=== PATIENT | male | born 1990 | race Caucasian/White ===

== ENCOUNTER 2018-08-27 18:39 | Emergency (ER) | payer OTHER ==
[2018-08-27 18:48] VITALS: BP 119/85
--- NOTE | 2018-08-27 19:10 | UC ---
Abdominal Pain Male HPI - HPI Summary HPI Summary: 28-year-old male who started experiencing mid abdominal discomfort during the night approximately 3 AM. Since then the discomfort has moved to the right lower quadrant. He's had some nausea today and low-grade temp. Last time he ate was approximatly 2:00pm today however that was not a big meal. - History of Current Complaint Chief Complaint: UCAbdominalPain Stated Complaint: ABDOMINAL PAIN Time Seen by Provider: 08/27/18 18:54 Hx Obtained From: Patient Onset/Duration: Gradual Onset Timing: Constant Severity Initially: Mild Severity Currently: Moderate Pain Intensity: 7 Location: Discrete At: RLQ Radiates: No Character: Aching, Dull Aggravating Factor(s): Movement Alleviating Factor(s): Nothing Associated Signs And Symptoms: Positive: Fever - Low-grade fever, Decreased Appetite - Decreased appetite today., Nausea - Mild nausea today - Allergies/Home Medications Allergies/Adverse Reactions: Allergies Allergy/AdvReac Type Severity Reaction Status Date / Time No Known Allergies Allergy Verified 08/27/18 18:49 Home Medications: Home Medications Loratadine [Claritin 10 MG CAP] 10 mg PO DAILY 08/27/18 [History Confirmed 08/27] PMH/Surg Hx/FS Hx/Imm Hx Previously Healthy: Yes GI/ History: Other - Ulcerative colitis - Surgical History Surgical History: Yes Surgery Procedure, Year, and Place: multiple foot surgeries 2004- - Family History Known Family History: Positive: Hypertension - Social History Alcohol Use: Weekly Substance Use Type: Marijuana Substance Use Comment - Amount & Last Used: weekly Smoking Status (MU): Never Smoked Tobacco Review of Systems All Other Systems Reviewed And Are Negative: Yes Constitutional: Positive: Fever Gastrointestinal: Positive: Abdominal Pain, Nausea Is Patient Immunocompromised?: No Physical Exam Triage Information Reviewed: Yes Appearance: No Pain Distress, Well-Nourished, Ill-Appearing - Mildly ill- appearing and moves slowly when positioning self on the exam table Vital Signs: Initial Vital Signs Temp 99.8 F 08/27/18 18:43 Pulse 96 08/27/18 18:43 Resp 16 08/27/18 18:43 BP 119/85 08/27/18 18:43 Pulse Ox 99 08/27/18 18:43 Vital Signs Reviewed: Yes Eyes: Positive: Conjunctiva Clear ENT: Positive: Hearing grossly normal, Pharynx normal, TMs normal, Uvula midline Neck: Positive: Supple, Nontender, No Lymphadenopathy Respiratory: Positive: Lungs clear, Normal breath sounds, No respiratory distress, No accessory muscle use Cardiovascular: Positive: RRR, No Murmur, Pulses Normal, Brisk Capillary Refill Abdomen Description: Positive: No Organomegaly, Soft, Guarding - Guarding right lower quadrant, McBurney's Point Tenderness - With rebound. Negative: Hepatomegaly, Splenomegaly Bowel Sounds: Positive: Present Musculoskeletal Exam: Normal Neurological Exam: Normal Psychological Exam: Normal Skin Exam: Normal Abd Pain Male Course/Dx - Course Course Of Treatment: This patient's physical exam is consistent with acute appendicitis. He was referred to the emergency room. He prefers to go by private car and he was advised to brisket puller and call 911 if he has any difficulties or worsening symptoms. The patient was advised not to eat or drink anything between here and the emergency room. He was in agreement with this instruction. He did voice to me he wanted to wait 24 hours before going to the emergency room however I strongly advised him that he needs to go to the emergency room from here to be evaluated. He then stated that he would do that. - Differential Dx/Clinical Impression Provider Diagnosis: Abdominal pain Discharge - Sign-Out/Discharge Documenting (check all that apply): Patient Departure All imaging exams completed and their final reports reviewed: No Studies - Discharge Plan Condition: Fair Disposition: HOME-RECOMMEND TO ED Referrals: Mark Orosco MD [Primary Care Provider] - Additional Instructions: After the evaluation by the nurse practitioner, it is recommended that you go to the emergency room for further evaluation of the abdominal pain where you should receive additional testing that can be completed in the emergency department. It is recommended that you go directly to the emergency department. This evaluation may include blood work or imaging. This testing will be directed and decided by the provider that evaluates you within the emergency department. If pain becomes worse, you feel lightheaded or you develop uncontrolled vomiting, or have any other concerns while you are driving to the emergency room, please brisket puller and call 911. Your physical exam is consistent with acute appendicitis. - Billing Disposition and Condition Condition: FAIR Disposition: Home-Recommend to ED
== END 2018-08-27 19:05 | disposition home health service (06) ==
LOC: UCEAST 18:39
DX: R10.31 Right lower quadrant pain (principal)
CPT/HCPCS: 99212; G0463

== ENCOUNTER 2018-08-27 19:31 | Observation (INO) | payer OTHER ==
--- NOTE | 2018-08-27 20:27 | ED ---
Abdominal Pain/Male - HPI Summary HPI Summary: This patient is a 28 year old M presenting to [facility] with a chief complaint of abdominal pain that began diffusely yesterday evening that gradually worsened today. He reports accidently hitting his abdomen earlier today that caused significant pain in the RLQ. Pain is unrelieved by antacids and Tylenol. Pain rated 7/10 in severity. Reports decrease appetite and generalized malaise prior to onset of pain. Patient denies changes in BM, urinary symptoms, and chest pain. PMHx of Ulcerative Colitis; states current symptoms are dissimilar to a flare up. - History of Current Complaint Chief Complaint: EDAbdPain Stated Complaint: ABD PAIN PER PT Time Seen by Provider: 08/27/18 20:15 Hx Obtained From: Patient Onset/Duration: Gradual Onset, Lasting Days Timing: Constant Severity Initially: Mild Severity Currently: Moderate Pain Intensity: 7 Pain Scale Used: Adult Non Verbal Location: Diffuse, Discrete At: RLQ Aggravating Factor(s): Other: - palpation Alleviating Factor(s): Nothing Associated Signs And Symptoms: Positive: Decreased Appetite, Other - general malaise. Negative: Chest Pain, Diarrhea - Allergies/Home Medications Allergies/Adverse Reactions: Allergies Allergy/AdvReac Type Severity Reaction Status Date / Time No Known Allergies Allergy Verified 08/27/18 19:43 PMH/Surg Hx/FS Hx/Imm Hx Endocrine/Hematology History: Denies: Hx Diabetes Cardiovascular History: Denies: Hx Hypertension GI History: Reports: Other GI Disorders - Recent hx ulcerative colitis History: Denies: Hx Renal Disease - Surgical History Surgery Procedure, Year, and Place: multiple foot surgeries 2004- Infectious Disease History: No Infectious Disease History: Denies: History Other Infectious Disease, Traveled Outside the [place] in Last 30 Days - Family History Known Family History: Positive: Hypertension - Social History Alcohol Use: Weekly Substance Use Type: Reports: Marijuana Substance Use Comment - Amount & Last Used: weekly Smoking Status (MU): Never Smoked Tobacco Review of Systems Positive: Other - generalize malaise Negative: Chest Pain Gastrointestinal: Other - decrease appetite Positive: Abdominal Pain Positive: no symptoms reported All Other Systems Reviewed And Are Negative: Yes Physical Exam - Summary Physical Exam Summary: Appearance: Well-appearing, Well-nourished, lying in bed comfortably Skin: Warm, dry, no obvious rash Eyes: sclera anicteric, no conjunctival pallor ENT: mucous membranes moist, pharynx appears normal Neck: Supple, nontender Respiratory: Clear to auscultation, no signs of respiratory distress Cardiovascular: Normal S1, S2. No murmurs. Normal distal pulses in tibial and radial bilaterally. Abdomen: Soft, normal active bowel sounds present, RLQ tenderness with guarding , rebound and referred rebound, no hernias Musculoskeletal: Normal, Strength/ROM Intact Neurological: A&Ox3, awake and alert, mentation is normal, speech is fluent and appropriate Psychiatric: affect is normal, does not appear anxious or depressed Triage Information Reviewed: Yes Vital Signs On Initial Exam: Initial Vitals Temp Pulse Resp BP Pulse Ox 99.4 F 90 16 132/81 97 08/27/18 19:35 08/27/18 19:35 08/27/18 19:35 08/27/18 19:35 08/27/18 19:35 Vital Signs Reviewed: Yes Diagnostics - Vital Signs Vital Signs Temp Pulse Resp BP Pulse Ox 08/27/18 19:35 99.4 F 90 16 132/81 97 - Laboratory Result Diagrams: 08/27/18 20:26 08/27/18 20:26 Lab Statement: Any lab studies that have been ordered have been reviewed, and results considered in the medical decision making process. - CT A/P CT Interpretation Completed By: Radiologist Summary of CT Findings: Acute appendicitis. ED physician has reviewed this report. Abdominal Pain Male Course/Dx - Course Course Of Treatment: 28 year old M presenting to [facility] with a chief complaint of abdominal pain that began diffusely yesterday evening that gradually worsened today. He reports accidently hitting his abdomen earlier today that caused significant pain in the RLQ. Patient given 10mg morphine. Bloodwork and UA obtained with WBC of 11.3. CT A/P reveals acute appendecitis. Case discussed [facility] Dr. Snell, surgery, who agrees to admit and will begin to put in orders for the patient. Results and plan discussed with patient and is agreeable. - Diagnoses Provider Diagnoses: Acute appendicitis - Provider Notifications Discussed Care Of Patient With: Jean Snell Time Discussed With Above Provider: 00:10 Instructed by Provider To: Other - admit for surgery, will begin to put in orders Discharge - Sign-Out/Discharge Documenting (check all that apply): Patient Departure - admit Patient Received Moderate/Deep Sedation with Procedure: No - Discharge Plan Condition: Stable Disposition: ADMITTED TO [facility] - Billing Disposition and Condition Condition: STABLE Disposition: Admitted to [facility] - Attestation Statements Document Initiated by Jj: Yes Documenting Scribe: Cherrie Aguila Provider For Whom Jj is Documenting (Include Credential): Wes Aiken MD Scribe Attestation: Cherrie Kapadia, scribed for Wes Aiken MD on 08/30/18 at 0824. Scribe Documentation Reviewed: Yes Provider Attestation: The documentation as recorded by the Cherrie trejo accurately reflects the service I personally performed and the decisions made by Wes moise MD Status of Scribe Document: Viewed
[2018-08-27 20:32] LABS: ABS Eosinophils 0.2 10^3/ul (0-0.6); ABS Lymphocytes 1.4 10^3/ul (1.0-4.8); ABS Monocytes 0.9 10^3/ul (0-0.8); ABS Neutrophils 8.7 10^3/ul (1.5-7.7); Eosinophil % 1.9 %; Hematocrit 45 % (42-52); Hemoglobin 15.8 g/dL (14.0-18.0); Lymphocyte % 12.6 %; Mean Corpuscular HGB Conc 35 g/dL (31-36); Mean Corpuscular Hemoglobin 34 pg (27-31); Mean Corpuscular Volume 95 fL (80-94); Mean Platelet Volume 8.1 fL (7.4-10.4); Platelet Count 194 10^3/uL (150-450); Red Cell Distribution Width 14 % (10-15); White Blood Count 11.3 10^3/uL (3.5-10.8)
[2018-08-27 20:47] LABS: Urine Appearance Clear; Urine Bacteria Absent (Absent); Urine Bilirubin Negative (Negative); Urine Blood 1+ (Negative); Urine Color Yellow; Urine Glucose Negative (Negative); Urine Ketones Negative (Negative); Urine Nitrite Negative (Negative); Urine Protein Negative (Negative); Urine Red Blood Cell 3+(>10/hpf) (Absent); Urine Specific Gravity 1.021 (1.010-1.030); Urine Urobilinogen Negative (Negative); Urine White Blood Cell Trace(0-5/hpf) (Absent)
[2018-08-27 20:50] LABS: Albumin 4.5 g/dL (3.2-5.2); Anion Gap 7 mmol/L (2-11); BUN/Creatinine Ratio 20.3 (8-20); Blood Urea Nitrogen 16 mg/dL (6-24); CO2 Carbon Dioxide 26 mmol/L (22-32); Calcium 9.8 mg/dL (8.6-10.3); Chloride 104 mmol/L (101-111); EGFR African American 141.3 (>60); EGFR Non-African American 116.8 (>60); Glucose 99 mg/dL (70-100); Sodium 137 mmol/L (135-145); Total Protein 7.2 g/dL (6.4-8.9)
[2018-08-27 20:51] LABS: ALT 18 U/L (7-52); AST 15 U/L (13-39); Albumin/Globulin Ratio 1.7 (1-3); Alkaline Phosphatase 41 U/L (34-104); C Reactive Protein 19.93 mg/L (<8.01); Globulin 2.7 g/dL (2-4)
[2018-08-27] MEDS ORDERED: Iohexol 300* (CONTRAST) 10 ML SDV IV ONE (20:55)
[2018-08-27] MEDS: Morphine 10 MG/ML VIAL (1 ml) IV PRN (22:10)
[2018-08-28] MEDS: Morphine 10 MG/ML VIAL (1 ml) IV PRN (00:12)
[2018-08-28] MEDS ORDERED: Piperacillin/Tazobac ADVAN(*) 3.375 GM in NS 0.9% 100 ML* 100 ML IVPB ONE (00:22)
[2018-08-28] MEDS ORDERED: Zosyn per Pharmacy* NOTE FOLLOW UP SCH (01:00)
[2018-08-28] MEDS ORDERED: Lactated Ringers 1000 ML Bag* 1,000 ML IV SCH (01:00)
[2018-08-28] MEDS ORDERED: Ondansetron INJ* 2 MG/ML VIAL IV PRN ×2 (02:50→08:57)
[2018-08-28] MEDS ORDERED: Morphine 4 MG/ML VIAL (1 ml) 4 MG/ML VIAL IV PRN (02:51)
[2018-08-28] MEDS ORDERED: Morphine INJ* 2 MG/ML 1 ML SYRINGE (TWO MG - NEW SYRINGE VERSION) IV PRN (02:52)
[2018-08-28] MEDS ORDERED: NS 0.9% 1000 ML** 1,000 ML IV SCH (03:00)
[2018-08-28] MEDS ORDERED: ZOSYN 3.375 GM Q8H per EXTENDED INFUSION IVPB SCH ×2 (05:30)
[2018-08-28] MEDS ORDERED: Bupivacaine 0.5%* 50 ML VIAL ONE (07:57)
[2018-08-28] MEDS ORDERED: fentaNYL* 50 MCG/ML 5 ML VIAL (250 MCG VIAL) ONE (08:18)
[2018-08-28] MEDS ORDERED: Rocuronium* 10 MG/ML VIAL ONE (08:18)
[2018-08-28] MEDS ORDERED: Midazolam* 1 MG/ML 2 ML VIAL (2 MG) ONE (08:18)
[2018-08-28] MEDS ORDERED: ceFOXitin 2 GM IVPREMIX* 2 GM/50 ML BAG ONE (08:31)
--- NOTE | 2018-08-28 08:43 | HP ---
ADMISSION HISTORY AND PHYSICAL: DATE OF ADMISSION: 08/28/18 CHIEF COMPLAINT: Abdominal pain. HISTORY OF PRESENT ILLNESS: This is a pleasant 20-year-old gentleman who presented to the emergency room with abdominal pain. Pain started early Wednesday morning about 2 in the morning which generalized and then shortly localized towards the right lower quadrant. He came to the emergency room and workup there included laboratory study showing an elevated white blood cell count and CT scan of the abdomen and pelvis consistent with appendicitis, some nausea. He ate some food yesterday, no diarrhea. PAST MEDICAL HISTORY: Ulcerative colitis. PAST SURGICAL HISTORY: No prior abdominal surgery. MEDICATIONS: He has not taken any of his medication for ulcerative colitis in 24 hours. ALLERGIES: No known drug allergies. FAMILY HISTORY: Denies history of colorectal or breast cancer. 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 No tobacco use. REVIEW OF SYSTEMS: General: Denies weight loss, change of appetite. HEENT: No changes in vision, hearing, swallowing. No sore throat. Cardiac: No chest pain. Pulmonary: No cough. GI: No blood per rectum. : No hematuria. Skin : Denies rash. Neuro: No headache or dizziness. Musculoskeletal: No extremity weakness. Psych: No anxiety or depression. PHYSICAL EXAMINATION GENERAL: Pleasant gentleman complaining of abdominal pain. HEENT: Sclerae are anicteric. Oral mucosa is pink and moist. NECK: Supple. No JVD. No masses. LUNGS: Clear. HEART: Regular. ABDOMEN: Soft, tender in the right lower quadrant. EXTREMITIES: No clubbing, cyanosis or edema. NEUROLOGIC: Grossly intact. No focal, motor or sensory deficits. PSYCH: No anxiety or depression. SKIN: No rash, petechiae or jaundice. IMPRESSION: Acute appendicitis. Plan is for laparoscopic appendectomy. I discussed the surgery with the patient and his mother. We discussed the risks, including but not limited to bleeding, infection, injury to intraabdominal contents/other, seemed to understand and would to like proceed with surgery and all questions were answered. [id number]/[facility] #: [id number] MTDLila
[2018-08-28] MEDS ORDERED: Succinylcholine* 20 MG/ML 10 ML VIAL ONE (08:46)
[2018-08-28] MEDS ORDERED: Ondansetron INJ* 2 MG/ML VIAL ONE (08:46)
[2018-08-28] MEDS ORDERED: Dexamethasone IV* 4 MG/ML 1 ML (4 MG) ONE (08:46)
[2018-08-28] MEDS ORDERED: Lidocaine 2% PF * 5 ML VIAL ONE (08:46)
[2018-08-28] MEDS ORDERED: Propofol* 10 MG/ML 20 ML BTL ONE (08:46)
[2018-08-28] MEDS ORDERED: DiMENhydriNATE IV* 50 MG/ML VIAL IV PUSH PRN (08:57)
[2018-08-28] MEDS ORDERED: Acetaminophen IV 1GM/100ML * 1,000 MG/100 ML VIAL IVPB ONE (08:57)
[2018-08-28] MEDS ORDERED: fentaNYL* 50 MCG/ML 2 ML VIAL (100 MCG VIAL) IV PRN (08:57)
[2018-08-28] MEDS ORDERED: HYDROcodone/ACETAMIN 5-325 MG* 1 TAB PO PRN (08:57)
[2018-08-28] MEDS ORDERED: Ketorolac INJ* 30 MG/ML 1 ML VIAL IV PRN (08:57)
[2018-08-28] MEDS ORDERED: Naloxone* 0.4 MG/ML 1 ML VIAL IV PRN (08:57)
[2018-08-28] MEDS ORDERED: HYDROmorphone INJ1* 1 MG/ML SYRINGE IV PRN (08:57)
[2018-08-28] MEDS ORDERED: Acetaminophen IV 1GM/100ML * 100 ML ONE (09:17)
[2018-08-28] MEDS ORDERED: fentaNYL* 50 MCG/ML 2 ML VIAL (100 MCG VIAL) ONE (09:35)
--- NOTE | 2018-08-28 10:21 | DS ---
DISCHARGE SUMMARY: DATE OF ADMISSION: 08/28/18 DATE OF DISCHARGE: 08/28/18 DISCHARGE DIAGNOSIS: Acute appendicitis. REASON FOR ADMISSION: Acute appendicitis. ASSESSMENT OF THE PATIENT'S CONDITION AT THE TIME OF DISCHARGE: The patient is in stable, good condition at the time of discharge status post laparoscopic appendectomy with good pain control. PERTINENT PHYSICAL FINDINGS: On admission, right lower quadrant discomfort. On exam on discharge, resolution of right lower quadrant pain, mild incisional pain. PERTINENT LABORATORY FINDINGS: Elevated white blood cell count was noted on admission. PROCEDURE PERFORMED: Laparoscopic appendectomy. TREATMENT RENDERED: Laparoscopic appendectomy. CONDITION AND DISPOSITION: He is in good stable, condition for disposition. Plans on being discharged to home. DISCHARGE INSTRUCTIONS: He will be on a regular diet. He was given Percocet 5/ 325 eight tablets 1 p.o. q.4 hours p.r.n. for pain. He can also use Tylenol for pain. ACTIVITY: Out of bed, normal activity as pain tolerates. Should not lift more than 20 pounds for 4 weeks. He will follow up in the office in 7 to 14 days. He understands to call with any fevers, chills, severe abdominal pain, or other issues. HOSPITAL COURSE: He was admitted from the emergency room with a diagnosis of appendicitis. Placed on IV antibiotics with plans for laparoscopic appendectomy which was performed this morning. He is being discharged in stable condition with plans for followup in the office. [id number]/[facility] #: [id number] LAKESHA
[2018-08-28 10:24] VITALS: BP 129/83
--- NOTE | 2018-08-28 10:29 | OP ---
DATE OF OPERATION: 08/28/18 - ROOM #343 DATE OF : 89 ATTENDING SURGEON: Jean Snell MD. PRE-OP DIAGNOSIS: Acute appendicitis. POST-OP DIAGNOSIS: Acute appendicitis. OPERATIVE PROCEDURE: Laparoscopic appendectomy. INDICATION FOR PROCEDURE: Appendicitis. Risks including, but not limited to, bleeding, infection, injury to the bowel were explained to the patient, who seemed to understand and agreed to the procedure and all questions were answered. DESCRIPTION OF PROCEDURE: The patient was taken to the operating room, placed supine. Preoperative antibiotics were given. After the successful induction of general endotracheal anesthesia, the abdomen was prepped and draped in sterile fashion. Time-out was performed indicating correct patient, correct procedure. A left lower quadrant 5-mm trocar was placed under direct visualization of the camera into the peritoneal cavity. Pneumoperitoneum was achieved at 15 mmHg. The camera was placed in the abdomen. The abdomen was scanned. There was no obvious injury from trocar placement. A 12-mm umbilical trocar was placed through a small umbilical hernia and a 5-mm suprapubic trocar was placed. The patient was placed in the Trendelenburg position, tilted slightly towards the left. An acutely inflamed appendix was easily identified. The base was isolated and divided with a stapler, gold load. The mesoappendix was taken with a silver vascular load. It was placed into an Endo bag and removed from the umbilical port site. The right lower quadrant was inspected. EBL was essentially 0. Hemostasis was intact. No purulence was noted in the right lower quadrant. A scan of the abdomen was performed. No other obvious abnormalities were noted. The trocars were removed as pneumoperitoneum was released from the abdomen. The umbilical hernia was closed with 0 Vicryl suture. Skin was closed with Monocryl and glue. He tolerated the procedure well. He was extubated and taken to the recovery room in stable condition. [id number]/[facility] #: [id number] [facility]
== END 2018-08-28 10:57 | disposition home or self-care (01) ==
LOC: ED 19:31 → SSU 08-28 00:45
PROVIDERS: ADMIT Surgery; ATTEND Surgery
DX: K35.80 Unspecified acute appendicitis (principal); R10.31 Right lower quadrant pain
CPT/HCPCS: 36415; 74177; 80053; 81003; 81015; 83690; 85025; 86140; 87086; 88304; 96374; 99284; G0378; J0330; J0694; J1100; J2250; J2270; J2405; J2543; J2704; J3010; J3490; Q9967